=== PATIENT | male | born 1980 | race Hispanic/Latino ===

== ENCOUNTER 2021-05-02 17:25 | Emergency (ER) | payer OTHER ==
[~2021-05-02] VITALS: Ht 175.3 cm; Wt 86.2 kg
[2021-05-02 17:28] VITALS: BP 167/74
[2021-05-02] MEDS ORDERED: GUAIFENESIN-CODEINE 5 ML SYRUP PO ONE (18:00)
[2021-05-02] MEDS ORDERED: ACETAMINOPHEN 500 MG TABLET PO ONE (18:00)
[2021-05-02] MEDS ORDERED: ACET-66 PO (18:24)
[2021-05-02] MEDS ORDERED: IBUP-2070 PO (18:24)
[2021-05-02] MEDS ORDERED: AZIT500T4 PO (18:24)
[2021-05-02] MEDS ORDERED: GUAIFACSF PO (18:24)
[2021-05-02] MEDS ORDERED: AZITHROMYCIN 250 MG TABLET PO ONE (18:30)
== END 2021-05-02 18:46 | disposition home or self-care (01) ==
LOC: EDH 17:25
DX: U07.1 COVID-19 (principal); J12.82 Pneumonia due to coronavirus disease 2019
CPT/HCPCS: 71045; 87635; 87804 ×2; 87880; 99284; C9803